=== PATIENT | male | born 1990 | race Two or more races ===

== ENCOUNTER 2017-12-23 16:00 | Emergency (ER) | payer MEDICAID ==
[~2017-12-23] VITALS: Ht 177.8 cm; Wt 74.8 kg
[2017-12-23 16:30] VITALS: BP 122/73
== END 2017-12-23 18:19 | disposition home or self-care (01) ==
LOC: ER 16:00
DX: S02.32XA Fracture of orbital floor, left side, initial encounter for closed fracture (principal); R42 Dizziness and giddiness; H11.32 Conjunctival hemorrhage, left eye; Y08.89XA Assault by other specified means, initial encounter; Y93.89 Activity, other specified; Y92.89 Other specified places as the place of occurrence of the external cause; Y99.8 Other external cause status; Z90.49 Acquired absence of other specified parts of digestive tract
CPT/HCPCS: 70450; 70486

== ENCOUNTER 2021-11-15 13:52 | Emergency (ER) | payer MEDICAID ==
[~2021-11-15] VITALS: Ht 177.8 cm; Wt 79.4 kg
[2021-11-15 14:21] VITALS: BP 146/90
== END 2021-11-15 15:00 | disposition left against medical advice (07) ==
LOC: ER 13:52
DX: Z00.00 Encounter for general adult medical examination without abnormal findings (principal); F17.210 Nicotine dependence, cigarettes, uncomplicated; Z90.49 Acquired absence of other specified parts of digestive tract

== ENCOUNTER 2023-09-18 13:15 | Emergency (ER) | payer MEDICAID ==
[~2023-09-18] VITALS: Ht 180.3 cm; Wt 91.3 kg
[2023-09-18 13:25] VITALS: TEMP 97.4
[2023-09-18 13:27] VITALS: BP 128/70; PULSE 61; RESP 18; O2SAT 95
[2023-09-18] MEDS ORDERED: CYCL-837 PO (15:48)
[2023-09-18] MEDS ORDERED: IBUP-1455 PO (15:48)
== END 2023-09-18 15:49 | disposition home or self-care (01) ==
LOC: ER 13:15
DX: S33.5XXA Sprain of ligaments of lumbar spine, initial encounter (principal); F12.10 Cannabis abuse, uncomplicated; F17.210 Nicotine dependence, cigarettes, uncomplicated; X58.XXXA Exposure to other specified factors, initial encounter; Y93.89 Activity, other specified; Y92.89 Other specified places as the place of occurrence of the external cause; Y99.8 Other external cause status

== ENCOUNTER 2023-12-12 11:30 | Emergency (ER) | payer MEDICAID ==
[~2023-12-12] VITALS: Ht 180.3 cm; Wt 94.0 kg
[~2023-12-12 11:30] MED LIST: CYCL-837 PO; IBUP-1455 PO
[2023-12-12 12:49] VITALS: BP 124/86; PULSE 92; RESP 18; TEMP 98.2; O2SAT 96
[2023-12-12] MEDS ORDERED: CEPH500T PO (13:49)
[2023-12-12] MEDS ORDERED: IBUP-1456 PO (13:49)
== END 2023-12-12 13:57 | disposition home or self-care (01) ==
LOC: ER 11:30
DX: S93.401A Sprain of unspecified ligament of right ankle, initial encounter (principal); J03.90 Acute tonsillitis, unspecified; Z90.49 Acquired absence of other specified parts of digestive tract; F17.210 Nicotine dependence, cigarettes, uncomplicated; X58.XXXA Exposure to other specified factors, initial encounter; Y93.89 Activity, other specified; Y92.89 Other specified places as the place of occurrence of the external cause; Y99.8 Other external cause status
CPT/HCPCS: 73610